=== PATIENT | female | born 1945 ===

== ENCOUNTER 2017-05-20 05:15 | Day surgery (SDC) | payer OTHER ==
[~2017-05-20 05:15] MED LIST: ASA81 MG PO; GABAPENTIN400 MG PO; GLIPIZIDE5 MG PO; HUMALOG MI100 UNIT/2; METFORMIN HCL500 MG PO; SIMVASTATIN20 MG PO
[2017-05-20] MEDS ORDERED: MACROBID 100 M100 MG PO (09:21)
[2017-05-20] MEDS ORDERED: ULTRACET PO (09:22)
== END 2017-05-20 12:10 | disposition home or self-care (01) ==
LOC: CIR.AMB 05:15
DX: N81.6 Rectocele (principal); N81.11 Cystocele, midline; N81.5 Vaginal enterocele